=== PATIENT | male | born 1955 | race African-American/Black ===

== ENCOUNTER 2019-08-03 17:27 | Emergency (ER) | payer SELFPAY ==
[~2019-08-03] VITALS: Ht 180.3 cm; Wt 77.0 kg
[2019-08-03] MEDS: KETOROLAC 60MG/2ML VIAL IM ONE (18:37)
[2019-08-03 19:45] VITALS: BP 123/80
== END 2019-08-03 19:45 | disposition home or self-care (01) ==
LOC: ER 17:27
DX: M54.42 Lumbago with sciatica, left side (principal); G89.29 Other chronic pain; V49.59XA Passenger injured in collision with other motor vehicles in traffic accident, initial encounter; Y93.89 Activity, other specified; Y92.89 Other specified places as the place of occurrence of the external cause; Y99.8 Other external cause status
CPT/HCPCS: 72100; 96372; 99283; J1885